=== PATIENT | male | born 1930 | race Caucasian/White ===

== ENCOUNTER 2017-05-25 19:58 | Observation (INO) ==
[2017-05-25] MEDS ORDERED: Aspirin 81 MG TAB.CHEW PO ONE (20:15)
[2017-05-25 20:48] LABS: Basophils # 0.1 K/mcL (0.0-0.2); Basophils % 0.6 %; Eosinophils # 0.1 K/mcL (0.0-0.6); Eosinophils % 1.7 %; Hematocrit 44.9 % (37.5-50.1); Hemoglobin 14.9 g/dL (12.9-16.9); Immature Granulocytes % 0.5 % (0-4); Lymphocytes % 24.4 %; Mean Corpuscular HGB Conc 33.2 g/dL (31.6-35.5); Mean Corpuscular Hemoglobin 31.4 pg (28.0-33.3); Mean Corpuscular Volume 94.5 fL (83.0-100.0); Mean Platelet Volume 9.5 fL (9.4-12.4); Monocytes # 0.5 K/mcL (0.0-1.3); Monocytes % 6.7 %; Neutrophils # 5.3 K/mcL (1.6-8.9); Platelet Count 253 K/mcL (140-400); Red Blood Count 4.75 M/mcL (4.19-5.50); Red Cell Distribution Width 12.6 % (11.5-14.5); Segmented Neutrophils % 66.1 %
[2017-05-25 20:53] LABS: Prothrombin Time 10.4 Seconds (9.4-12.1)
[2017-05-25 20:59] LABS: BUN/Creatinine Ratio 16 (6-26); Blood Urea Nitrogen 17 mg/dL (8-26); Carbon Dioxide 25 mEq/L (19-29); Chloride 106 mEq/L (98-109); Glucose 183 mg/dL (70-99); Osmolality,Calculated 296 (280-300); Potassium 3.9 mEq/L (3.5-4.5); Sodium 140 mEq/L (136-145); eGFR For African Americans > 60 (> 60); eGFR For Non-African Americans > 60 (> 60)
--- NOTE | 2017-05-25 21:11 | Emergency Department Note ---
Disposition Clinical Impression: Acute electrocardiogram changes, Right bundle branch block Hypertension Qualifiers: Hypertension type: unspecified Qualified Code(s): I10 - Essential (primary) hypertension Disposition: Admitted As Inpatient Condition: Good Time of Disposition: 21:50 General Adult HPI - General Chief complaint: ED Recheck/Abnormal Lab/Rx Stated complaint: Abnormal Labs Time Seen by Provider: 05/25/17 20:13 Source: patient Limitations: no limitations Nursing Notes Reviewed: Yes Vital Signs Reviewed: Yes - History of Present Illness HPI Narrative: 87-year-old male complains of elevated blood pressure with pain down his left arm lasting half hour to 23 hours over the past 2 days. Patient states he recently had some increased stressors and 5 with his being in a alf for rehabilitation and him being home alone attending told her animals as well as his increased worry about her. And having to make numerous trips to go visit her. Patient states he has never had any heart problems or problems with his blood pressure in the past. Patient has no history of COPD, kidney disease. Pain Scale: 0 - Related Data Allergies Allergy/AdvReac Type Severity Reaction Status Date / Time Amoxicillin Allergy See Verified 05/25/17 20:06 Comments Sulfa (Sulfonamide Allergy See Verified 05/25/17 20:06 Antibiotics) Comments All systems ED: reviewed and negative except as stated. Review of Systems: As Per HPI Constitutional: Denies: fever, weakness Eyes: Denies: vision change ENT ED: Denies: congestion Cardiovascular: Denies: chest pain, palpitations Respiratory: Denies: cough Musculoskeletal: Denies: back pain, neck pain Neurological: Denies: headache, paresthesias Past Medical History - Past Medical History Medical history: Reports: no medical history Psychiatric history: Reports: no psych history - Social History Smoking Status: Never smoker Smokeless Tobacco Status: No Alcohol use: Reports: none Drug use: Reports: none Physical Exam Vital Signs Temperature 98.6 F 05/25/17 20:06 Pulse Rate 72 05/25/17 20:06 Respiratory Rate 16 05/25/17 20:06 Blood Pressure 143/70 05/25/17 20:06 O2 Sat by Pulse Oximetry 95 05/25/17 20:06 Temperature 98.6 F 05/25/17 20:06 Pulse Rate 66 05/25/17 20:47 Respiratory Rate 16 05/25/17 20:47 Blood Pressure 177/80 05/25/17 20:47 O2 Sat by Pulse Oximetry 95 05/25/17 20:47 Oxygen Delivery Oxygen Delivery Room Air 87-year-old male who is alert and oriented 3 and in no acute distress. Patient is nontoxic appearing. Patient has no focal neurologic deficits no slurring of speech. Patient has normal vital signs with exception of his blood pressure which is elevated at 143/70 and and recheck 177/80 - General Limitations: no limitations General appearance: alert, in no apparent distress - Head Head exam: atraumatic, normocephalic, normal inspection - Eye Eye exam: Present: normal appearance, PERRL, EOMI - ENT ENT exam: normal exam, normal oropharynx, mucous membranes moist - Neck Neck exam: Present: normal inspection, full ROM, trachea midline - Chest Chest inspection: Present: normal inspection, symmetric chest wall rise - Respiratory Respiratory exam: Present: normal lung sounds bilaterally. Absent: respiratory distress, wheezes - Cardiovascular Cardiovascular exam: Present: regular rate, normal rhythm, normal heart sounds - Abdominal Exam Abdominal exam: Present: soft, Non-Tender. Absent: tenderness, distention, guarding, rebound, rigidity - Extremities Exam Extremities exam: Present: normal inspection, full ROM. Absent: tenderness, pedal edema - Back Exam Back exam: Present: normal inspection, full ROM. Absent: tenderness, CVA tenderness (R), CVA tenderness (L) - Neurological Exam Neurological exam: Present: alert, oriented X3 - Skin Skin exam: Present: warm, dry, intact, normal color Course Vital Signs Temperature 98.6 F 05/25/17 20:06 Pulse Rate 72 05/25/17 20:06 Respiratory Rate 16 05/25/17 20:06 Blood Pressure 143/70 05/25/17 20:06 O2 Sat by Pulse Oximetry 95 05/25/17 20:06 Temperature 98.6 F 05/25/17 20:06 Pulse Rate 66 05/25/17 20:47 Respiratory Rate 16 05/25/17 20:47 Blood Pressure 177/80 05/25/17 20:47 O2 Sat by Pulse Oximetry 95 05/25/17 20:47 Oxygen Delivery Oxygen Delivery Room Air Medical Decision Making - [facility] Narrative Medical decision making narrative: Patient's symptoms of new onset hypertension and left arm pain with change in EKG concerning for ACS/RI, PE. Patient also has complaints of gastroesophageal reflux disease and will receive Protonix IV. Patient's lab work unremarkable with a negative troponin and no chemistry abnormalities. Current plan is for admission for recent EKG changes of new right bundle-branch block along with left arm pain and new elevations of blood pressure. For evaluation by cardiology with trending of troponins overnight. Patient understands and agrees with decision for admission. Patient is started on IV fluids 1 L and has been given 80 mg IV Protonix for his indigestion/GERD symptoms. Patient has no recurrence of left arm pain and does not complain of chest pain. Dr. Parnell the hospitalist is that the patient for admission at 2130 hrs. - Lab Data Lab results reviewed: Yes I reviewed the patient's lab results. Lab results narrative: Short CBC 05/25/17 Range/Units 20:40 WBC 8.0 (4.3-11.1) K/mcL Hgb 14.9 (12.9-16.9) g/dL Hct 44.9 (37.5-50.1) % Plt Count 253 (140-400) K/mcL Neutrophils # 5.3 (1.6-8.9) K/mcL BMP 05/25/17 Range/Units 20:40 Sodium 140 (136-145) mEq/L Potassium 3.9 (3.5-4.5) mEq/L Chloride 106 (98-109) mEq/L Carbon Dioxide 25 (19-29) mEq/L BUN 17 (8-26) mg/dL Creatinine 1.05 (0.72-1.25) mg/dL Glucose 183 H (70-99) mg/dL Calcium 9.0 (8.6-10.8) mg/dL Cardiac Enzymes 05/25/17 Range/Units 20:40 Troponin I 0.02 (0-0.03) ng/mL Result diagrams: 05/25/17 20:40 05/25/17 20:40 Lab Results 05/25/17 05/25/17 05/25/17 Range/Units 20:40 20:40 20:40 WBC 8.0 (4.3-11.1) K/mcL RBC 4.75 (4.19-5.50) M/mcL Hgb 14.9 (12.9-16.9) g/dL Hct 44.9 (37.5-50.1) % MCV 94.5 (83.0-100.0) fL MCH 31.4 (28.0-33.3) pg MCHC 33.2 (31.6-35.5) g/dL RDW 12.6 (11.5-14.5) % Plt Count 253 (140-400) K/mcL MPV 9.5 (9.4-12.4) fL Immature Gran % 0.5 (0-4) % Seg Neutrophils % 66.1 % Lymphocytes % 24.4 % Monocytes % 6.7 % Eosinophils % 1.7 % Basophils % 0.6 % Neutrophils # 5.3 (1.6-8.9) K/mcL Lymphocytes # 2.0 (0.6-4.6) K/mcL Monocytes # 0.5 (0.0-1.3) K/mcL Eosinophils # 0.1 (0.0-0.6) K/mcL Basophils # 0.1 (0.0-0.2) K/mcL PT 10.4 (9.4-12.1) Seconds INR 1.0 Sodium 140 (136-145) mEq/L Potassium 3.9 (3.5-4.5) mEq/L Chloride 106 (98-109) mEq/L Carbon Dioxide 25 (19-29) mEq/L BUN 17 (8-26) mg/dL Creatinine 1.05 (0.72-1.25) mg/dL Est GFR ( Amer) > 60 (> 60) Est GFR (Non-Af Amer) > 60 (> 60) BUN/Creatinine Ratio 16 (6-26) Glucose 183 H (70-99) mg/dL Calculated Osmolality 296 (280-300) Calcium 9.0 (8.6-10.8) mg/dL Troponin I (0-0.03) ng/mL 05/25/17 Range/Units 20:40 WBC (4.3-11.1) K/mcL RBC (4.19-5.50) M/mcL Hgb (12.9-16.9) g/dL Hct (37.5-50.1) % MCV (83.0-100.0) fL MCH (28.0-33.3) pg MCHC (31.6-35.5) g/dL RDW (11.5-14.5) % Plt Count (140-400) K/mcL MPV (9.4-12.4) fL Immature Gran % (0-4) % Seg Neutrophils % % Lymphocytes % % Monocytes % % Eosinophils % % Basophils % % Neutrophils # (1.6-8.9) K/mcL Lymphocytes # (0.6-4.6) K/mcL Monocytes # (0.0-1.3) K/mcL Eosinophils # (0.0-0.6) K/mcL Basophils # (0.0-0.2) K/mcL PT (9.4-12.1) Seconds INR Sodium (136-145) mEq/L Potassium (3.5-4.5) mEq/L Chloride (98-109) mEq/L Carbon Dioxide (19-29) mEq/L BUN (8-26) mg/dL Creatinine (0.72-1.25) mg/dL Est GFR ( Amer) (> 60) Est GFR (Non-Af Amer) (> 60) BUN/Creatinine Ratio (6-26) Glucose (70-99) mg/dL Calculated Osmolality (280-300) Calcium (8.6-10.8) mg/dL Troponin I 0.02 (0-0.03) ng/mL - Radiology Data Radiology results reviewed: Yes I reviewed the patient's radiology results. Chest X-Ray 05/25/17 20:15 IMPRESSION: No acute process. D/ / Topher Rangel MD / Topher Rangel MD Interpreting Provider: Topher Rangel MD - EKG Data EKG #1 EKG attestation: Yes I reviewed and interpreted this EKG. EKG results narrative: EKG taken 05/25/2017 at 2004 hrs. shows sinus rhythm at a rate of 70 bpm with first-degree heart block with partial/incomplete right bundle branch block in V2 V3. Which looks slightly improved from previous EKGs taken earlier today that showed same morphology. His EKG taken February 2001 for comparison does not show signs of right bundle but has first-degree AV block.
[2017-05-25] MEDS ORDERED: 0.9 % Sodium Chloride 1,000 ML IVC ONE (21:14)
[2017-05-25] MEDS ORDERED: Pantoprazole 80 MG in Water for inj. (sterile) 10 ML IVP ONE (21:15)
--- NOTE | 2017-05-25 21:20 | Emergency Department Note ---
START Narrative - START START: I examined this patient and my medical decision-making was reviewed with the PRESSURIZER/PA/Advanced Practice Nurse/Resident Physician. I agree with the documented findings, disposition and treatment plan as described except to the extent set forth below. ED attending note: Patient seen with emergency medicine resident Dr. Bud Padilla. We independently evaluated the patient. We independently had face-to- face contact with the patient. Please see a copy of his note for details of the history and physical, evaluation, management and disposition of this emergency Department patient. Briefly: A 7-year-old male otherwise healthy presents with several days of intermittent left arm pain which lasts from 30 minutes to an hour. No prior cardiac history or recent stress test or cardiac cats. Never smoked. EKG shows some nonspecific changes compared with old EKG. Physical exam is benign troponin negative. Patient will be medically admitted for acute coronary syndrome anginal equivalent. Admission pending
[2017-05-25] MEDS ORDERED: Acetaminophen 325 MG TABLET PO PRN (23:03)
[2017-05-25] MEDS ORDERED: Naloxone 0.4 MG/ML INJ IVP PRN (23:03)
[2017-05-25] MEDS ORDERED: *HR* Morphine 2 MG/ML SYRINGE IVP PRN (23:03)
[2017-05-25] MEDS ORDERED: Ondansetron 4 MG/2 ML VIAL IVP PRN (23:03)
[2017-05-25] MEDS ORDERED: *HR* HYDROcodone/Acet 5/325 mg TABLET PO PRN (23:03)
--- NOTE | 2017-05-25 23:55 | Internal Med History&Physical ---
Date of Encounter: 05/26/17 Time of Encounter: 23:53 Assessment and Plan (1) Chest pain Current visit: Yes Status: Acute Will place the pt into Tele for observation His Left arm dull pain .. concerning for ACS will put him on nuclear monitoring technician check serial troponin..so far negative troponin Reviewed EKG by myself ; showed SR with 1st degree AV block ND interval 296, incomplete RBBB.. No prior EKG to compare Started him on ASA and Nitro PRN Since he is high risk for ACS, will get Stress test in AM NPO after mid night Qualifiers: Qualified Code(s): R07.9 - Chest pain, unspecified (2) Acute electrocardiogram changes Current visit: Yes Status: Acute (3) Right bundle branch block Current visit: Yes Status: Acute (4) Hypertension Current visit: Yes Status: Acute His BP fairly controlled will start him on Metoprolol after stress test in AM For now will give him Hydralazine IV PRN Qualifiers: Hypertension type: essential hypertension Qualified Code(s): I10 - Essential (primary) hypertension Internal Medicine - H&P: HPI Chief complaint: Chest pain Admitted From: Emergency Dept Plans for Post Hospital Care: Home History of present illness: Mr. Rivero is a 87 year old male with no significant PMH pt presented to ER with elevated blood pressure and intermittent pain in his left arm from last 2 days. He does feel heaviness / dull pain in left arm, 6/10 in severity, non radiating. Patient states he recently had some increased stress with his being in a halfway for rehabilitation, him being home alone and having to make numerous trips to [facility] go visit her. He denied any prior h/o heart problems Past Med Surg Social Fam HX - Past Medical History Medical history: no medical history Psychiatric history: no psych history - Social History Smoking Status: Never smoker Smokeless Tobacco Status: No Alcohol use: none Drug use: none - Family History Daughter Hx Family Cardiac Disorders: No Hx Family Respiratory Disorders: No Hx Family Cancer: Yes (Breast) Hx Family GI Disorders: No Hx Family Genitourinary Disorders: No Hx Family Endocrine Disorder: No Hx Family Musculoskeletal Disorders: No Hx Family Neuromuscular Disorders: No Hx Family Neurologic Disorders: No Hx Family HEENT Disorders: No Hx Family Autoimmune Disorders: No Hx Family Reproductive Disorders: No Hx Family Psychosocial Disorders: No Hx Family Medical Disorders: No Internal Medicine - H&P: Meds Multivit-Min/FA/Lycopen/Lutein [Adults 50+ Multivitamin Tablet] 1 each PO DAILY 05/25/17 [History] 3 Allergy/AdvReac Type Severity Reaction Status Date / Time Amoxicillin Allergy See Verified 05/25/17 20:06 Comments Sulfa (Sulfonamide Allergy See Verified 05/25/17 20:06 Antibiotics) Comments All Systems PM: A 10-system review of systems was performed and is negative for pertinent findings except as documented above in the HPI. Review of systems: All the systems are reviewed everything is benign except the systems and symptoms I mentioned in the history of present illness - Constitutional Vitals: Temp Pulse Resp BP Pulse Ox 97.8 F 59 16 181/69 93 05/25/17 22:19 05/25/17 22:19 05/25/17 22:19 05/25/17 22:19 05/25/17 22:19 General appearance: Present: A&O X 3, no acute distress, answers questions appropriately - Head Head exam: Present: atraumatic, normal inspection - Neck Neck exam general surgery: Present: supple - Respiratory Respiratory exam: Present: CTAB. Absent: accessory muscle use, rales, rhonchi, wheezes - Cardiovascular Cardiovascular exam: Present: RRR, +S1, +S2. Absent: diastolic murmur, gallop, rubs, systolic murmur - GI/Abdominal GI/Abdominal exam: Present: normal bowel sounds, soft. Absent: rebound, rigid, tenderness - Extremities Exam Extremities exam: Absent: calf tenderness, pedal edema, tenderness - Back Exam Back exam: Absent: CVA tenderness (L), CVA tenderness (R) - Psychiatric Psychiatric exam: Present: normal affect, normal mood - Skin Skin exam: Absent: rash Internal Med - H&P Results - Labs CBC & Chem 7: 05/25/17 20:40 05/25/17 20:40
[2017-05-26] MEDS ORDERED: Nitroglycerin 0.4 MG TAB.SUBL SL PRN (01:11)
[2017-05-26 06:34] LABS: Chol/HDL Ratio 3.4 (0-4.9)
[2017-05-26] MEDS ORDERED: Regadenoson 0.4 MG/5 ML SYRINGE IVP ONE (07:44)
[2017-05-26] MEDS ORDERED: Aspirin Enteric Coated 81 MG Tablet PO SCH (09:00)
[2017-05-26] MEDS ORDERED: Multivit/Ca/Min/Fe/FA 1 TAB TABLET PO SCH (09:00)
[2017-05-26 14:48] VITALS: BP 126/61
--- NOTE | 2017-05-26 16:10 | Discharge Summary ---
Date of Encounter: 05/26/17 Time of Encounter: 16:08 - Discharge Diagnosis (1) Chest pain Priority: Primary Status: Resolved Comments: Presented with 2 episodes chest pain that radiated to left arm. Serial troponins negative, EKG without acute ST changes. Stress test with small fixed defect consistent with artifact otherwise negative for ischemia or infarct. TTE with EF 55%, mild diastolic dysfunction. Chest pain/left arm discomfort resolved prior to arrival and no recurrence while inpatient. Suspect musculoskeletal etiology as patient reports his is an SNF and he makes multiple trips back and forth daily and he thinks he may have overdone it. Obvious trauma or injury to left arm. No further workup or treatment indicated at this time. Can follow up with outpatient PCP Qualifiers: Qualified Code(s): R07.9 - Chest pain, unspecified (2) Hypertension Priority: Primary Status: Acute Comments: No previous diagnosis of hypertension and not on antihypertensive at home. BP intermittently uncontrolled while inpatient with SBP is 170s to 180s. Patient declined antihypertensive tensive. States SBP typically in 130s at home. He has a BP monitor and will monitor blood pressure daily and follow-up with PCP if remains elevated. Qualifiers: Hypertension type: essential hypertension Qualified Code(s): I10 - Essential (primary) hypertension - Discharge Medications Home Medications: Multivit-Min/FA/Lycopen/Lutein [Adults 50+ Multivitamin Tablet] 1 each PO DAILY 05/25/17 [History] Allergies/Adverse Reactions: 3 Allergy/AdvReac Type Severity Reaction Status Date / Time Amoxicillin Allergy See Verified 05/25/17 20:06 Comments Sulfa (Sulfonamide Allergy See Verified 05/25/17 20:06 Antibiotics) Comments Procedures/tests Complete & Pending: Procedures Performed prior 72 hours Category Date Time Status NM adia perf SPECT multi [NM] Routine Exams 05/26/17 01:12 Taken EV echocardiogram Routine Y 05/26/17 01:21 Completed SP pharm nuclear stress Routine Y 05/26/17 01:11 Completed Date of admission: 05/25/17 21:43 Primary care physician: Alan De Santiago MD Discharging clinician: Dina Jackson Anticipated date of discharge: 05/26/17 - Patient Status Disposition: Home, Self-Care Condition: Good Functional capacity at discharge: independent ambulation Overall status at discharge: patient is back to baseline - Discharge Instructions Instructions: Hypertension (DC) Follow Up With: Alan De Santiago MD [Primary Care Provider] - - Diet and Activity Activity: increase activity as tolerated, resume usual activities as tolerated Diet: advance to your usual diet Interval History: Seen and examined at bedside. Patient is new to me, information obtained from chart review and patient report. Patient says he feels much better, back to baseline and would like to discharge home today. He tells me that he had slight chest discomfort that radiated to left arm; had 2 episodes in the last episode lasted approximately 3 hours so he came to the emergency room. He was says his is in a senior living and he has been running back and forth between home and senior living all times of the day and he thinks he overdone it. He has no complaints all my exam, specifically denies chest pain, no shortness of breath, no paresthesias. Hospital course: See assessment and plan for hospital course. - Time Spent with Patient Total time spent providing and/or coordinating discharge services: - Constitutional Vitals: Temp Pulse Resp BP Pulse Ox 98.4 F 83 16 126/61 93 05/26/17 14:47 05/26/17 14:47 05/26/17 14:47 05/26/17 14:47 05/26/17 14:47 General appearance: Present: A&O X 3, no acute distress, answers questions appropriately - Head Head exam: Present: atraumatic, normocephalic - Eye Eye exam: Present: PERRL, conjuntiva pink, sclera anicteric Pupils: Present: PERRL - Neck Neck exam general surgery: Present: supple, trachea midline. Absent: lymphadenopathy - Respiratory Respiratory exam: Present: CTAB. Absent: accessory muscle use, rales, rhonchi, wheezes - Cardiovascular Cardiovascular exam: Present: RRR, +S1, +S2. Absent: diastolic murmur, gallop, rubs, systolic murmur - GI/Abdominal GI/Abdominal exam: Present: normal bowel sounds, soft, no peritoneal signs. Absent: distended, tenderness - Extremities Exam Extremities exam: Present: warm, radial pulses palpable and symmetrical. Absent : calf tenderness, cyanotic, pedal edema - Neurological Exam Neurological exam: Present: CN II-XII intact, oriented X3, no focal deficits. Absent: pronater drift, facial droop, speech deficit - Skin Skin exam: Present: dry, intact
--- NOTE | 2017-05-28 12:06 | Electrocardiograph Report ---
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
== END 2017-05-26 18:30 | disposition home or self-care (01) ==
LOC: 3BNU 19:58 → EMEROO 19:58 → 3BNU 22:00
PROVIDERS: ADMIT Family Medicine; ATTEND Registered Nurse